=== PATIENT | male | born 1960 | race American Indian/Alaskan Native ===

== ENCOUNTER 2018-05-05 07:58 | Day surgery (SDC) | payer OTHER ==
--- NOTE | 2018-05-05 09:28 | CP.SDSHP ---
Same Day Surgery H & P - History Proposed Procedure: COLONSCOPY Pre-Op Diagnosis: SEE NOTES - Previous Medical/Surgical History Misc: Other Pain: 2.Mild Pain - Allergies Allergies: Allergies No Known Allergies Allergy (Verified 05/04/18 14:14) - Physical Exam General Appearance: N Vital Signs: Vital Signs 05/05/18 08:10 Temperature 97.3 F L Pulse Rate 57 L Respiratory 19 Rate Blood Pressure 131/90 O2 Sat by Pulse 100 Oximetry Mental Status: Alert & Oriented x3 Neuro: WNL Heart: WNL Lungs: WNL GI: WNL - {Optional Preform as Required} Breast: WNL Abdomen: Other Rectal: WNL Integument: WNL : WNL Ortho: WNL ENT: WNL - Impression Pt. Evaluated Today:Candidate for Anesthesia & Procedure: Yes - Date & Time Time: 09:27 Short Stay Discharge - Short Stay Discharge Admitting Diagnosis/Reason for Visit: ENCOUNTER FOR SCREENING FOR MALIGNANT NEOPLASM OF Disposition: HOME/ ROUTINE
[2018-05-05] MEDS ORDERED: Lactated Ringer's 1,000 ML IV ONE (09:30)
[2018-05-05] MEDS ORDERED: Propofol 10 mg/ml Inj (20 ML) ONE (09:31)
[2018-05-05] MEDS ORDERED: Glucagon Recombinant 1 mg Inj ONE (09:40)
[2018-05-05] MEDS ORDERED: Belladonna-Phenobarbital PO ONE (10:10)
[2018-05-05 10:35] VITALS: RESP 14; O2SAT 100
[2018-05-05 11:46] VITALS: BP 131/88; PULSE 57; TEMP 97
== END 2018-05-05 11:25 | disposition home or self-care (01) ==
LOC: C.ENDO 07:58
PROVIDERS: ATTEND Specialist
DX: K52.9 Noninfective gastroenteritis and colitis, unspecified (principal)
CPT/HCPCS: 45380; 88305; J1610; J2704; J7120